=== PATIENT | female | born 1945 | race Caucasian/White ===

== ENCOUNTER 2017-12-05 06:55 | Day surgery (SDC) | payer OTHER ==
[~2017-12-05] VITALS: Ht 149.9 cm; Wt 72.3 kg
[~2017-12-05 06:55] MED LIST: BUPR-197 PO; HYDR12.56 PO; LISI-360 PO; METF1000 PO; OMEP20TA39 PO; PRAV40TA PO; RIFA550 PO; VITA20002 PO
[2017-12-05 07:29] VITALS: BP 152/90; PULSE 63; RESP 18; TEMP 97.6; O2SAT 98
[2017-12-05] MEDS ORDERED: RED1CAP4 PO (07:40)
[2017-12-05] MEDS ORDERED: CYAN1TAB24 PO (07:40)
[2017-12-05] MEDS ORDERED: CRANCAP2 PO (07:40)
[2017-12-05] MEDS ORDERED: MAGN250T11 PO (07:40)
[2017-12-05] MEDS ORDERED: SACC1CAP3 PO (07:40)
[2017-12-05] MEDS ORDERED: PROB1CHW4 CHEW (07:40)
[2017-12-05] MEDS ORDERED: METO25TA3 PO (07:40)
[2017-12-05] MEDS ORDERED: D-20TAB3 PO (07:40)
[2017-12-05] MEDS ORDERED: DIGO0.12 PO (07:40)
[2017-12-05] MEDS ORDERED: MULTTAB67 PO (07:40)
[2017-12-05] MEDS ORDERED: APIX5TAB PO (07:40)
[2017-12-05] MEDS ORDERED: COQ1200C3 PO (07:40)
[2017-12-05] MEDS ORDERED: OMEGCAP PO (07:40)
[2017-12-05] MEDS ORDERED: METF500T PO (07:40)
[2017-12-05] MEDS ORDERED: SODIUM CHLORIDE 0.9% 1000 ML IV SCH (08:00)
[2017-12-05] MEDS ORDERED: POVIDONE IODINE 5% (ANTISEPSIS KIT) 4 APPLICATIONS EACH NARE SCH (08:15)
[2017-12-05] MEDS ORDERED: VANCOMYCIN 1000 MG/NS 250 ML - implanted port/tunneled catheter IV SCH ×2 (08:15)
[2017-12-05] MEDS ORDERED: CHLORHEXIDINE GLUCONATE 2 % 1 PACK (2 CLOTHS) TOPICAL SCH (08:15)
[2017-12-05] MEDS ORDERED: ceFAZolin 2 GM PREMIX 50 ML - implanted port/tunneled catheter insertion IV SCH (08:15)
[2017-12-05] MEDS ORDERED: fentaNYL CITRATE 250 MCG/5 ML AMP ONE (09:02)
[2017-12-05] MEDS ORDERED: MIDAZOLAM HCL 5 MG/5 ML VIAL ONE (09:02)
[2017-12-05] MEDS ORDERED: LIDOCAINE 1%/EPINEPHrine 1:100,000 SOLN 20 ML VIAL ONE (09:05)
--- NOTE | 2017-12-05 10:06 | PD.RAD ---
Post Procedure Progress Note Procedure Date: Dec 05, 2017 Supervising Radiologist: Jesse Aponte Proceduralist/Assist: Jaret Chamorro, RT(R), Bess Gilman RT(R) Anesthesia: Conscious Sedation Plan of Activity Patient to Unit: [facility] Patient Condition: Good See PACS Report for procedural detail/treatment Jesse Aponte MD Dec 05, 2017 10:06
[2017-12-05 10:15] VITALS: BP 143/63; PULSE 77; RESP 18; TEMP 97.4; O2SAT 94
[2017-12-05 10:30] VITALS: BP 140/67; PULSE 79; RESP 18; O2SAT 92
[2017-12-05 11:00] VITALS: BP 141/57; PULSE 63; RESP 18; O2SAT 93
[2017-12-05 11:30] VITALS: BP 131/60; PULSE 61; RESP 16; O2SAT 93
--- NOTE | 2017-12-05 13:13 | RADRPT ---
EXAM DATE: 12/05/2017 10:14 AM EDT AGE/SEX: 72 years / Female INDICATIONS: Patient with history of bladder cancer in need of [id number] placement. CLINICAL DATA: This is the patient's initial encounter. Patient reports that signs and symptoms have been present for 2 months and indicates a pain score of 0/10. MEDICAL/SURGICAL HISTORY: Hypertension. Diabetes. A-Fib. Cholecystectomy. Hysterectomy. Fernando arean section. Chest surgery COMPARISON: No prior exams available for comparison. FLUORO TIME (min): 0.4 IMAGE SERIES: 1 SEDATION TIME (min): 30 MEDICATION(S): 2mg midazolam (Versed) IV 100mcg fentanyl (Sublimaze) IV Prophylactic antibiotics were administered with appropriate pre-procedure timing. Vancomycin within 2 hrs of procedure, Ancef (or alternative) within 1 hr of procedure. DEVICE(S): Right 8F Xcela plus port . . PROCEDURE : 1. Continuous pulse oximetry and EKG monitoring. 2. Intravenous conscious sedation. 3. Ultrasound guidance for venous access. 4. Fluoroscopic guided implantable central venous port placement. The patient was placed supine. The neck was prepped in sterile fashion. Full sterile technique was u sed, including cap, mask, sterile gloves and gown, and a large sterile sheet. Hand hygiene and 2% ch lorhexidine Betadine was utilized per protocol for cutaneous antisepsis with appropriate dry time for site. Sterile gel and sterile probe cover were utilized for ultrasound guidance. The skin and sub cutaneous tissues were infiltrated with local anesthetic solution. Under direct ultrasound guidance, central venous access was accomplished in the targeted vessel. The ultrasound images depicting access guidance were stored and saved to PACS for permanent record. A s ubcutaneous pocket was created using blunt dissection. The port was introduced to the pocket. The c atheter tubing was fed through a subcutaneous tunnel to the venotomy site. The catheter tubing was c ut to a suitable length and then was introduced through a valved Peel-Away sheath and positioned with catheter tubing tip at the cavo-atrial junction level. The pocket incision was closed with subcutic ular Vicryl suture. Steri-Strips were applied. The port was flushed and locked with heparin solutio n per protocol. Sterile dressing was applied to the site. The patient tolerated the procedure well. Conscious sedation was performed with the prescribed dosages and duration as above in the presence of an independent trained radiology nurse to assist in the monitoring of the patient. EKG and oximetry remained stable throughout the procedure. The patient tolerated the procedure well and there were no complications. The patient was sent to post anesthesia recovery in stable condition. CONCLUSION: 1. Uncomplicated ultrasound and fluoroscopic guided implanted central venous port catheter placement as described in detail above. An 8 [employer] port was placed. Electronically signed by: Jesse Aponte MD 12/05/2017 1:11 PM EDT
== END 2017-12-05 12:25 | disposition home or self-care (01) ==
LOC: HROP 06:55 → HRIP 06:55 → HROP 12:25
PROVIDERS: ATTEND Internal Medicine Hematology & Oncology
DX: C67.9 Malignant neoplasm of bladder, unspecified (principal); I10 Essential (primary) hypertension; E11.9 Type 2 diabetes mellitus without complications; I48.91 Unspecified atrial fibrillation
CPT/HCPCS: 36561; 76937; 77001; 99152; 99153; C1788; J0690; J1642; J2250; J3010; J3370; J7030; J7050